=== PATIENT | female | born 1960 | race Caucasian/White ===

== ENCOUNTER 2019-05-05 09:32 | Inpatient (IN) | payer OTHER ==
[~2019-05-05] VITALS: Ht 157.5 cm; Wt 128.9 kg
[2019-05-05 10:00] LABS: Basophils # (auto) 0.1 uL; Eosinophils # (auto) 0.1 uL; Eosinophils % (auto) 0.9 % (0.0-7.0); Hematocrit 45.4 % (36.0-46.0); Hemoglobin 15.6 g/dL (12.2-16.2); Lymphocytes # (auto) 1.9 uL; Lymphocytes % (auto) 18.3 % (10.0-50.0); Mean Corpuscular Hemoglobin 33.6 pg (28.0-32.0); Mean Corpuscular Hgb Conc. 34.4 g/dL (32.0-36.0); Mean Corpuscular Volume 97.5 fL (80.0-100.0); Monocytes # (auto) 1.6 uL; Monocytes % (auto) 14.9 % (0.0-12.0); Neutrophils # (auto) 6.8 uL; Neutrophils % (auto) 64.9 % (37.0-80.0); Nucleated Red Blood Cells % 0.2 %; Platelet Count (auto) 201 10^3/uL (140-450); Red Blood Cells 4.66 10^6/uL (4.0-5.20); Red Cell Distribution Width 13.9 % (11.8-14.3); White Blood Cell 10.5 10^3/uL (4.4-10.8)
[2019-05-05 10:16] LABS: Albumin 3.4 g/dL (3.4-5.0); Anion Gap 8 (5-15); Blood Urea Nitrogen 7 mg/dL (7-18); Calcium 8.7 mg/dL (8.5-10.1); Carbon Dioxide 28 mmol/L (21-32); Chloride 97 mmol/L (98-107); Glucose 354 mg/dL (74-106); Magnesium 1.9 mg/dL (1.6-2.6); Sodium 133 mmol/L (136-145)
[2019-05-05 10:22] LABS: Alanine Aminotransferase 63 U/L (13-56); Alkaline Phosphatase 192 U/L (45-117); Aspartate Aminotransferase 52 U/L (15-37); Bilirubin, Total 1.4 mg/dL (0.2-1.0); GFR African American 84 mL/min; GFR Non-African American 70 mL/min; Total Protein 8.2 g/dL (6.4-8.2)
[2019-05-05] MEDS ORDERED: SODIUM CHLORIDE 0.9% 1,000 ML IV ONE ×2 (10:29)
[2019-05-05] MEDS ORDERED: AZITHROMYCIN 500MG/ 250ML 250 ML IV ONE (10:30)
[2019-05-05] MEDS ORDERED: cefTRIAXone 1GM/50ML D5W 50 ML IV ONE (10:30)
[2019-05-05] MEDS ORDERED: methylPREDNISolone SOD SUCC 125 MG/2 ML VL IV ONE (10:45)
[2019-05-05] MEDS ORDERED: IPRATROPIUM BROM 0.5 MG/2.5ML INH SOL NEB ONE (10:45)
[2019-05-05] MEDS ORDERED: ALBUTEROL SULF 2.5 MG/0.5ML(0.5%) NEB SOLN NEB ONE (10:45)
[2019-05-05] MEDS ORDERED: PROMETHAZINE HCL 25 MG/ML 1ML IV PRN (12:15)
[2019-05-05] MEDS ORDERED: DEXTROSE (50%) 50ML SYRG IV PRN (12:15)
[2019-05-05] MEDS ORDERED: LACTULOSE 20Gm/30ML SOLN PO PRN (12:15)
[2019-05-05] MEDS ORDERED: MORPHINE SULF INJ 2 MG/ML SYRINGE 1ML IV PRN (12:15)
[2019-05-05] MEDS ORDERED: NITROGLYCERIN 0.4 MG SL TAB SL PRN (12:15)
[2019-05-05] MEDS ORDERED: ACETAMINOPHEN 500 MG TAB PO PRN (12:15)
[2019-05-05] MEDS ORDERED: LORazepam 0.5 MG TAB PO PRN (12:15)
[2019-05-05] MEDS ORDERED: TEMAZEPAM 15 MG CAP PO PRN (12:15)
[2019-05-05] MEDS ORDERED: ALBUTEROL SULF 2.5 MG/0.5ML(0.5%) NEB SOLN NEB PRN (12:15)
[2019-05-05] MEDS: SODIUM CHLORIDE 0.9% 1,000 ML IV SCH (12:35)
[2019-05-05] MEDS ORDERED: InsuLIN REG 1unit/0.01ml Soln (100units/ml) SC SCH (16:00)
[2019-05-05] MEDS: ACCU-CHEK COMFORT CURVE STRIP VI SCH ×2 (16:54→20:00)
[2019-05-05] MEDS: methylPREDNISolone SOD SUCC 40 MG/ML VL IV SCH (18:45)
[2019-05-05] MEDS: IPRATROPIUM BROM 0.5 MG/2.5ML INH SOL NEB SCH (19:00)
[2019-05-05] MEDS: ALBUTEROL SULF 2.5 MG/0.5ML(0.5%) NEB SOLN NEB SCH (19:00)
[2019-05-05] MEDS: InsuLIN REG 1unit/0.01ml Soln (100units/ml) SC SCH (20:00)
[2019-05-05 21:56] VITALS: BP 141/70
[2019-05-05 23:05] VITALS: BP 118/49
[2019-05-06] VITALS: BP 118/49
[2019-05-06] MEDS: ALBUTEROL SULF 2.5 MG/0.5ML(0.5%) NEB SOLN NEB SCH ×4 (00:12→18:24)
[2019-05-06] MEDS: IPRATROPIUM BROM 0.5 MG/2.5ML INH SOL NEB SCH ×4 (00:12→18:24)
[2019-05-06] MEDS: ACCU-CHEK COMFORT CURVE STRIP VI SCH ×6 (00:24→21:25)
[2019-05-06] MEDS: methylPREDNISolone SOD SUCC 40 MG/ML VL IV SCH ×4 (00:24→18:09)
[2019-05-06] MEDS: InsuLIN REG 1unit/0.01ml Soln (100units/ml) SC SCH ×6 (00:25→21:26)
[2019-05-06 04:00] VITALS: BP 102/54
[2019-05-06] MEDS: SODIUM CHLORIDE 0.9% 1,000 ML IV SCH (04:34)
[2019-05-06 05:14] LABS: Basophils # (auto) 0 uL; Basophils % (auto) 0.4 % (0.0-2.0); Eosinophils # (auto) 0 uL; Eosinophils % (auto) 0.1 % (0.0-7.0); Hematocrit 46.2 % (36.0-46.0); Hemoglobin 15.4 g/dL (12.2-16.2); Lymphocytes # (auto) 0.7 uL; Lymphocytes % (auto) 9.5 % (10.0-50.0); Mean Corpuscular Hemoglobin 32.8 pg (28.0-32.0); Mean Corpuscular Hgb Conc. 33.3 g/dL (32.0-36.0); Mean Corpuscular Volume 98.4 fL (80.0-100.0); Monocytes # (auto) 0.5 uL; Monocytes % (auto) 6.4 % (0.0-12.0); Neutrophils # (auto) 6.1 uL; Neutrophils % (auto) 83.6 % (37.0-80.0); Nucleated Red Blood Cells % 0.2 %; Platelet Count (auto) 203 10^3/uL (140-450); Red Cell Distribution Width 13.9 % (11.8-14.3); White Blood Cell 7.3 10^3/uL (4.4-10.8)
[2019-05-06 05:22] LABS: Albumin 3.3 g/dL (3.4-5.0); BUN/Creatinine Ratio 18.2; Calcium 8.9 mg/dL (8.5-10.1); Potassium 4.3 mmol/L (3.5-5.1)
[2019-05-06 05:26] LABS: Bilirubin, Total 0.6 mg/dL (0.2-1.0); Total Protein 8.2 g/dL (6.4-8.2)
[2019-05-06 08:00] VITALS: BP 103/46
[2019-05-06] MEDS: cefTRIAXone 1GM/50ML D5W 50 ML IV SCH (08:19)
[2019-05-06] MEDS: PANTOPRAZOLE 40 MG TAB PO SCH (08:20)
[2019-05-06] MEDS: ENOXAPARIN SOD 40 MG/0.4 ML SYRINGE SC SCH (09:57)
[2019-05-06] MEDS: AZITHROMYCIN 500MG/ 250ML 250 ML IV SCH (09:58)
[2019-05-06] MEDS ORDERED: LEVO125T7 PO (10:02)
[2019-05-06] MEDS ORDERED: ALBUAER3 IN (10:02)
[2019-05-06] MEDS ORDERED: FLUT250M2 INH (10:02)
[2019-05-06 12:00] VITALS: BP 117/74
[2019-05-06] MEDS ORDERED: INSULIN LANTUS (GLARGINE) 1 /0.01ml (100units/ml) SC ONE (12:15)
[2019-05-06] MEDS ORDERED: InsuLIN REG 1unit/0.01ml Soln (100units/ml) IV ONE ×2 (12:15→16:15)
[2019-05-06 16:00] VITALS: BP 129/65
[2019-05-06 16:14] LABS: Urine Bacteria NONE SEEN /hpf (None Seen); Urine Blood Negative /uL (Negative); Urine Specific Gravity 1.013 (1.001-1.035); Urine WBC <1 /hpf (0 - 5)
[2019-05-06] MEDS ORDERED: POTASSIUM CHL 20 Meq TABLET PO ONE (17:15)
[2019-05-06] MEDS ORDERED: FUROSEMIDE 40 MG/4 ML VIAL IV ONE (17:15)
[2019-05-06] MEDS: traMADol HCL 50 MG TAB PO PRN (18:09)
[2019-05-06 20:00] VITALS: BP 118/84
[2019-05-06] MEDS: CARVEDILOL 3.125 MG TAB PO SCH (21:56)
[2019-05-06] MEDS: INSULIN LANTUS (GLARGINE) 1 /0.01ml (100units/ml) SC SCH (21:56)
[2019-05-07] VITALS (10 sets, daily range): BP systolic 109–136; BP diastolic 47–85
[2019-05-07] MEDS: IPRATROPIUM BROM 0.5 MG/2.5ML INH SOL NEB SCH ×4 (00:23→19:53)
[2019-05-07] MEDS: ALBUTEROL SULF 2.5 MG/0.5ML(0.5%) NEB SOLN NEB SCH ×4 (00:23→19:53)
[2019-05-07] MEDS: methylPREDNISolone SOD SUCC 40 MG/ML VL IV SCH ×3 (02:28→22:43)
[2019-05-07] MEDS: ACCU-CHEK COMFORT CURVE STRIP VI SCH ×8 (02:28→23:49)
[2019-05-07] MEDS: InsuLIN REG 1unit/0.01ml Soln (100units/ml) SC SCH ×4 (02:28→12:11)
[2019-05-07] MEDS: DOCUSATE SOD 100 MG CAP PO SCH ×3 (02:29→22:43)
[2019-05-07] MEDS: INSULIN LANTUS (GLARGINE) 1 /0.01ml (100units/ml) SC SCH (07:17)
[2019-05-07] MEDS: LEVOTHYROXINE SODIUM 50 MCG TAB PO SCH (07:18)
[2019-05-07] MEDS: cefTRIAXone 1GM/50ML D5W 50 ML IV SCH (08:05)
[2019-05-07] MEDS: AZITHROMYCIN 500MG/ 250ML 250 ML IV SCH (09:11)
[2019-05-07] MEDS: ENOXAPARIN SOD 40 MG/0.4 ML SYRINGE SC SCH (09:12)
[2019-05-07] MEDS: ENALAPRIL MALEATE 2.5 MG TAB PO SCH (09:23)
[2019-05-07] MEDS: PANTOPRAZOLE 40 MG TAB PO SCH (09:23)
[2019-05-07] MEDS: CARVEDILOL 3.125 MG TAB PO SCH ×2 (09:24→22:44)
[2019-05-07] MEDS: NITROGLYCERIN 0.2MG/HR TOPICAL PATCH TD SCH (09:25)
[2019-05-07] MEDS ORDERED: POTASSIUM CHL 20 Meq TABLET PO SCH (10:00)
[2019-05-07] MEDS ORDERED: FUROSEMIDE 40 MG/4 ML VIAL IV SCH (10:00)
[2019-05-07] MEDS ORDERED: InsuLIN REG 1unit/0.01ml Soln (100units/ml) IV ONE (12:15)
[2019-05-07] MEDS ORDERED: DEXTROSE (50%) 50ML SYRG IV PRN (16:00)
[2019-05-07 17:37] LABS: Calcium 8.9 mg/dL (8.5-10.1); Magnesium 2.6 mg/dL (1.6-2.6); Potassium 4.1 mmol/L (3.5-5.1)
[2019-05-07] MEDS: InsuLIN R (HUMAN) 100 UNITS in SODIUM CHL 0.9% 99 ML IV SCH (17:51)
[2019-05-07] MEDS ORDERED: SODIUM CHLORIDE 0.9% 1,000 ML IV ONE (18:30)
[2019-05-07] MEDS ORDERED: INSULIN LANTUS (GLARGINE) 1 /0.01ml (100units/ml) SC ONE (18:30)
[2019-05-07] MEDS ORDERED: INSULIN LANTUS (GLARGINE) 1 /0.01ml (100units/ml) SC SCH (22:00)
[2019-05-08] VITALS (31 sets, daily range): BP systolic 97–146; BP diastolic 47–106
[2019-05-08] MEDS: IPRATROPIUM BROM 0.5 MG/2.5ML INH SOL NEB SCH ×4 (00:16→18:34)
[2019-05-08] MEDS: ALBUTEROL SULF 2.5 MG/0.5ML(0.5%) NEB SOLN NEB SCH ×4 (00:16→18:35)
[2019-05-08] MEDS: ACCU-CHEK COMFORT CURVE STRIP VI SCH ×12 (01:30→23:44)
[2019-05-08 04:11] LABS: Basophils # (auto) 0 uL; Basophils % (auto) 0.1 % (0.0-2.0); Eosinophils # (auto) 0 uL; Eosinophils % (auto) 0.2 % (0.0-7.0); Hematocrit 46.2 % (36.0-46.0); Hemoglobin 15.8 g/dL (12.2-16.2); Lymphocytes # (auto) 1.1 uL; Lymphocytes % (auto) 10.8 % (10.0-50.0); Mean Corpuscular Hemoglobin 33.4 pg (28.0-32.0); Mean Corpuscular Hgb Conc. 34.2 g/dL (32.0-36.0); Mean Corpuscular Volume 97.7 fL (80.0-100.0); Monocytes % (auto) 9.8 % (0.0-12.0); Neutrophils # (auto) 7.8 uL; Neutrophils % (auto) 79.1 % (37.0-80.0); Nucleated Red Blood Cells % 0.2 %; Platelet Count (auto) 208 10^3/uL (140-450); Red Blood Cells 4.73 10^6/uL (4.0-5.20); Red Cell Distribution Width 13.3 % (11.8-14.3); White Blood Cell 9.9 10^3/uL (4.4-10.8)
[2019-05-08 04:33] LABS: Potassium 4.1 mmol/L (3.5-5.1)
[2019-05-08 04:47] LABS: Albumin 3.2 g/dL (3.4-5.0); BUN/Creatinine Ratio 28.9; Bilirubin, Total 0.4 mg/dL (0.2-1.0); Calcium 8.9 mg/dL (8.5-10.1); Total Protein 7.7 g/dL (6.4-8.2)
[2019-05-08] MEDS: LEVOTHYROXINE SODIUM 50 MCG TAB PO SCH (07:00)
[2019-05-08] MEDS: cefTRIAXone 1GM/50ML D5W 50 ML IV SCH (09:12)
[2019-05-08] MEDS: CARVEDILOL 3.125 MG TAB PO SCH (10:00)
[2019-05-08] MEDS: NITROGLYCERIN 0.2MG/HR TOPICAL PATCH TD SCH (10:00)
[2019-05-08] MEDS: ENALAPRIL MALEATE 2.5 MG TAB PO SCH (10:00)
[2019-05-08] MEDS: ENOXAPARIN SOD 40 MG/0.4 ML SYRINGE SC SCH (11:02)
[2019-05-08] MEDS: AZITHROMYCIN 500MG/ 250ML 250 ML IV SCH (11:02)
[2019-05-08] MEDS: DOCUSATE SOD 100 MG CAP PO SCH ×2 (11:02→22:06)
[2019-05-08] MEDS: methylPREDNISolone SOD SUCC 40 MG/ML VL IV SCH (11:02)
[2019-05-08] MEDS: PANTOPRAZOLE 40 MG TAB PO SCH (11:02)
[2019-05-08] MEDS ORDERED: BUDESONIDE (INHALATION) 0.5 MG/2 ML NEB NEB ONE (14:00)
[2019-05-08] MEDS ORDERED: metFORMIN HYDROCHLORIDE 850 MG TAB PO ONE (14:00)
[2019-05-08] MEDS ORDERED: DEXTROSE (50%) 50ML SYRG IV PRN (14:00)
[2019-05-08] MEDS: InsuLIN REG 1unit/0.01ml Soln (100units/ml) SC SCH ×3 (16:50→23:44)
[2019-05-08] MEDS: metFORMIN HYDROCHLORIDE 850 MG TAB PO SCH (18:05)
[2019-05-08] MEDS: InsuLIN R (HUMAN) 100 UNITS in SODIUM CHL 0.9% 99 ML IV SCH (20:00)
[2019-05-08] MEDS ORDERED: INSULIN LANTUS (GLARGINE) 1 /0.01ml (100units/ml) SC SCH (22:00)
[2019-05-08] MEDS: BUDESONIDE (INHALATION) 0.5 MG/2 ML NEB NEB SCH (22:00)
[2019-05-09] VITALS: BP 118/63
[2019-05-09] MEDS: ALBUTEROL SULF 2.5 MG/0.5ML(0.5%) NEB SOLN NEB SCH ×4 (00:18→18:11)
[2019-05-09] MEDS: IPRATROPIUM BROM 0.5 MG/2.5ML INH SOL NEB SCH ×4 (00:18→18:11)
[2019-05-09] MEDS: ACCU-CHEK COMFORT CURVE STRIP VI SCH ×5 (03:28→19:56)
[2019-05-09] MEDS: InsuLIN REG 1unit/0.01ml Soln (100units/ml) SC SCH ×5 (03:28→19:56)
[2019-05-09 04:00] VITALS: BP 116/64
[2019-05-09 06:02] LABS: Hematocrit 46.8 % (36.0-46.0); Hemoglobin 15.9 g/dL (12.2-16.2); Mean Corpuscular Hemoglobin 33.2 pg (28.0-32.0); Mean Corpuscular Volume 97.6 fL (80.0-100.0); Platelet Count (auto) 204 10^3/uL (140-450); Red Blood Cells 4.79 10^6/uL (4.0-5.20); Red Cell Distribution Width 13.5 % (11.8-14.3); White Blood Cell 7.7 10^3/uL (4.4-10.8)
[2019-05-09 06:08] LABS: Potassium 3.6 mmol/L (3.5-5.1)
[2019-05-09] MEDS: LEVOTHYROXINE SODIUM 50 MCG TAB PO SCH (06:15)
[2019-05-09] MEDS: traMADol HCL 50 MG TAB PO PRN (06:15)
[2019-05-09 06:23] LABS: BUN/Creatinine Ratio 24.7; Calcium 8.3 mg/dL (8.5-10.1)
[2019-05-09 06:51] LABS: Basophils % (manual) 0 (0.0-2.0); Blast Cells 0; Metamyelocytes % 0; Myelocytes % 0; Promyelocytes % 0; Reactive Lymphocytes 0
[2019-05-09] MEDS: BUDESONIDE (INHALATION) 0.5 MG/2 ML NEB NEB SCH ×2 (06:56→18:12)
[2019-05-09 07:40] VITALS: BP 152/75
[2019-05-09] MEDS: metFORMIN HYDROCHLORIDE 850 MG TAB PO SCH ×2 (08:24→18:08)
[2019-05-09] MEDS: cefTRIAXone 1GM/50ML D5W 50 ML IV SCH (08:25)
[2019-05-09 09:02] LABS: Band Neutrophils % (manual) 2; Eosinophils % (manual) 5 (0-7); Lymphocytes % (manual) 15 (10.0-50.0); Monocytes % (manual) 11 (0-12)
[2019-05-09] MEDS: ENOXAPARIN SOD 40 MG/0.4 ML SYRINGE SC SCH (09:09)
[2019-05-09] MEDS: AZITHROMYCIN 500MG/ 250ML 250 ML IV SCH (09:09)
[2019-05-09] MEDS: PANTOPRAZOLE 40 MG TAB PO SCH (09:10)
[2019-05-09] MEDS: DOCUSATE SOD 100 MG CAP PO SCH (09:10)
[2019-05-09] MEDS ORDERED: predniSONE 20 MG TAB PO SCH (10:00)
[2019-05-09 10:28] LABS: Cholesterol 202 mg/dL (< 200); HDL Cholesterol 41 mg/dL (40-59); LDL Cholesterol 115 mg/dL (< 100); Triglycerides 324 mg/dL (< 150)
[2019-05-09 11:45] VITALS: BP 149/66
[2019-05-09] MEDS: InsuLIN R (HUMAN) 100 UNITS in SODIUM CHL 0.9% 99 ML IV SCH (16:00)
[2019-05-09 17:00] VITALS: BP 143/71
[2019-05-09 22:00] VITALS: BP 124/62
[2019-05-09] MEDS ORDERED: ATORVASTATIN 20 MG TAB PO SCH ×2 (22:00)
[2019-05-10] MEDS ORDERED: LEVOTHYROXINE SODIUM 50 MCG TAB PO SCH (07:00)
== END 2019-05-09 21:30 | disposition short-term general hospital (02) | DRG 291 ==
LOC: ER 09:32 → OVERFLOW 09:33 → DOU IN ICU 23:07 → ICU WEST 05-07 17:33 → DOU IN ICU 05-08 21:38 → TELE-EAST 05-09 15:05
PROVIDERS: ADMIT Internal Medicine; ATTEND Internal Medicine
PROC: 5A09357 Assistance with Respiratory Ventilation, Less than 24 Consecutive Hours, Continuous Positive Airway Pressure (ICD-10-PCS; principal; 2019-05-06)
DX: I50.21 Acute systolic (congestive) heart failure (principal); J96.21 Acute and chronic respiratory failure with hypoxia; J18.9 Pneumonia, unspecified organism; J44.0 Chronic obstructive pulmonary disease with (acute) lower respiratory infection; J44.1 Chronic obstructive pulmonary disease with (acute) exacerbation; Z68.43 Body mass index [BMI] 50.0-59.9, adult; E11.65 Type 2 diabetes mellitus with hyperglycemia; E66.01 Morbid (severe) obesity due to excess calories; H91.3 Deaf nonspeaking, not elsewhere classified; Z82.49 Family history of ischemic heart disease and other diseases of the circulatory system; Z87.891 Personal history of nicotine dependence; Z99.81 Dependence on supplemental oxygen
CPT/HCPCS: 36415; 36600; 71045; 80048; 80053; 80061; 81001; 82805; 82962; 83036; 83605; 83735; 83880; 84443; 84484; 85007; 85025; 85027; 87040; 93005; 93306; 93970; 94640; 94660; 94761; 96365; 96367; 96372; 96375; G0378; J0696; J1815